=== PATIENT | female | born 1955 | race Caucasian/White ===

== ENCOUNTER → 2016-11-04 | Day surgery (SDC) | payer OTHER, MEDICARE ==
[~2016-11-04] VITALS: Ht 170.2 cm; Wt 63.2 kg
[2016-11-04 14:54] LABS: HCT 31.7 % (37.0-47.0); HGB 11.3 g/dl (12.5-16.0); MCHC 35.6 g/dL (32.0-36.0); MCV 81.5 fL (78.0-100.0); MPV 10.4 fL (6.0-9.5); RBC 3.89 M/uL (4.20-5.40); WBC 3.7 K/uL (4.0-10.5)
== END | disposition home or self-care (01) ==
LOC: FAS 10-14 11:30
PROVIDERS: Legal Medicine
DX: T84.84XA Pain due to internal orthopedic prosthetic devices, implants and grafts, initial encounter (principal); K58.9 Irritable bowel syndrome, unspecified; K21.9 Gastro-esophageal reflux disease without esophagitis; M19.90 Unspecified osteoarthritis, unspecified site; M41.9 Scoliosis, unspecified; F32.9 Major depressive disorder, single episode, unspecified; Z90.49 Acquired absence of other specified parts of digestive tract; Z98.890 Other specified postprocedural states
CPT/HCPCS: 36415; 73501; 76000; J0690; J1100; J1170; J2405; J2704; J2795; J3010